=== PATIENT | female | born 1995 | race American Indian/Alaskan Native ===

== ENCOUNTER 2016-08-11 11:19 | Emergency (ER) | payer OTHER, MEDICAID ==
[2016-08-11 11:47] VITALS: BP 154/65
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
== END 2016-08-11 14:25 | disposition other institution (70) ==
LOC: ED 11:19
DX: O9A.212 Injury, poisoning and certain other consequences of external causes complicating pregnancy, second trimester (principal); J45.909 Unspecified asthma, uncomplicated; Z3A.25 25 weeks gestation of pregnancy; V89.2XXA Person injured in unspecified motor-vehicle accident, traffic, initial encounter; Y93.89 Activity, other specified; Y99.9 Unspecified external cause status; Y92.410 Unspecified street and highway as the place of occurrence of the external cause
CPT/HCPCS: 99282

== ENCOUNTER 2016-08-11 14:54 | Outpatient (CLI) | payer OTHER, MEDICAID ==
[2016-08-11 16:59] VITALS: BP 128/67
== END 2016-08-11 17:00 | disposition home or self-care (01) ==
LOC: TRG 14:54 → LD 14:56 → TRG 17:00
PROVIDERS: ATTEND Obstetrics & Gynecology
DX: O47.02 False labor before 37 completed weeks of gestation, second trimester (principal); V89.2XXA Person injured in unspecified motor-vehicle accident, traffic, initial encounter; Y93.89 Activity, other specified; Y92.89 Other specified places as the place of occurrence of the external cause; Y99.8 Other external cause status; Z3A.25 25 weeks gestation of pregnancy
CPT/HCPCS: 59025

== ENCOUNTER 2016-12-02 08:43 | Inpatient (IN) | payer MEDICAID ==
[~2016-12-02 08:43] MED LIST: NACL 0.9% IR ONE; WATER FOR IRRIG STERILE IR ONE
[2016-12-02] MEDS ORDERED: XYLOCAINE 2% INFILTRATI ONE (09:10)
--- NOTE | 2016-12-02 09:10 | History and Physical Report ---
History of Present Illness Date of examination: 12/02/16 Date of admission: 12/02/16 08:43 Chief complaint: Here for induction of labor History of present illness: 21 Y/O now 41.3 weeks here for induction of labor. Transferred in from [place] at 22.4 weeks gestation. HX of HSV2. GBS neg. Past History Past Medical History: asthma Past Surgical History: other (thumb surgery) EMD SPECIAL EDUCATION TEACHER History: herpes Family/Genetic History: diabetes, hypertension Social history: no significant social history - Obstetrical History Expected Date of Delivery: 11/22/16 Actual Gestation: 41 Week(s) 3 Day(s) : 1 Para: 0 Medications and Allergies Allergies Allergy/AdvReac Type Severity Reaction Status Date / Time pollen extracts Allergy Itching Verified 08/11/16 15:13 Home Medications Medication Instructions Recorded Confirmed Last Taken Type Albuterol Sulfate [Albuterol 0.63% 2 puff INHALATION Q4-6H PRN 08/11/16 Unknown History NEBS] Vit-Fe Fumar-FA [ 1 tab PO QDAY 08/11/16 08/11/16 08/11/16 09: 00 History Vitamin] 1 Review of Systems All systems: negative - Physical Exam Breasts: Positive: deferred Cardiovascular: Regular rate Lungs: Positive: Clear to auscultation Abdomen: Positive: soft Genitourinary (Female): Positive: normal external genitalia Vulva: both: normal Vagina: Positive: normal moisture Uterus: Positive: enlarged Anus/Rectum: Positive: normal perianal skin Extremities: Positive: normal Deep Tendon Reflex Grade: Normal +2 - Obstetrical FHR: category 1 Cervical Dilatation: 1 Cervical Effacement Percentage: 0 station: -2 Uterine Contraction Pattern: Irregular Results All other labs normal. Assessment and Plan A: IUP @ 41.2 weeks P; Induction of labor Pitocin
[2016-12-02] MEDS ORDERED: BRETHINE SUB-Q PRN (10:00)
[2016-12-02] MEDS ORDERED: PITOCin/NS 30 UNIT/500ML 30 UNITS/500 ML BAG IV SCH ×2 (10:00)
[2016-12-02] MEDS ORDERED: PITOCin/NS 20 UNIT/1000ML DRIP 20 UNITS/1,000 ML BAG IV SCH (10:00)
[2016-12-02] MEDS ORDERED: SUBLIMAZE IV PRN (10:00)
[2016-12-02] MEDS ORDERED: CERVIDIL VG ONE (10:00)
[2016-12-02] MEDS ORDERED: ePHEDrine SULFATE IV PRN (10:00)
[2016-12-02 10:22] LABS: Hematocrit 36.7 % (30.3-42.9); Hemoglobin 11.9 gm/dl (10.1-14.3); Mean Corpuscular HGB Conc 32 % (30-34); Mean Corpuscular Hemoglobin 26 pg (28-32); Mean Corpuscular Volume 82 fl (79-97); Platelet Count 241 K/mm3 (140-440); Red Blood Count 4.49 M/mm3 (3.65-5.03); Red Cell Distribution Width 17.6 % (13.2-15.2); White Blood Count 6.2 K/mm3 (4.5-11.0)
[2016-12-02] MEDS: LACTATED RINGERS 1,000 ML IV SCH ×3 (10:35→21:30)
[2016-12-02] MEDS ORDERED: BRETHINE IVP PRN (11:00)
[2016-12-02] MEDS ORDERED: STADOL IV PRN (19:54)
[2016-12-02] MEDS ORDERED: VISTARIL PO ONE (21:00)
[2016-12-02] MEDS ORDERED: MINERAL OIL PO PRN (22:00)
--- NOTE | 2016-12-02 22:05 | Event Note ---
Date: 12/02/16 Patient with decelerations on Cervidil. Have pulled Cervidil at this time with improving tracing noted. Plan is to allow fetus to recover and consider low- dose.
[2016-12-03] MEDS ORDERED: ePHEDrine SULFATE ONE (01:28)
[2016-12-03] MEDS ORDERED: NARCAN 2 MG/2 ML IV PRN (02:03)
[2016-12-03] MEDS ORDERED: ePHEDrine SULFATE IV PRN (02:03)
--- NOTE | 2016-12-03 02:03 | Anesthesia Consultation ---
Anesthesia Consult and Med Hx Date of service: 12/03/16 - Airway Anesthetic Teeth Evaluation: Good ROM Head & Neck: Adequate Mental/Hyoid Distance: Adequate Mallampati Class: Class II Intubation Access Assessment: Probably Good - Pulmonary Exam CTA: Yes - Cardiac Exam Cardiac Exam: RRR - Pre-Operative Health Status ASA Pre-Surgery Classification: ASA2 Proposed Anesthetic Plan: Epidural - Pulmonary Hx Asthma: Yes (mild) COPD: No Hx Pneumonia: No - Cardiovascular System Hx Hypertension: No - Central Nervous System Hx Seizures: No Hx Psychiatric Problems: No - Endocrine Hx Renal Disease: No Hx End Stage Renal Disease: No Hx Hypothyroidism: No Hx Hyperthyroidism: No - Hematic Hx Anemia: No Hx Sickle Cell Disease: No - Other Systems Hx Alcohol Use: No
[2016-12-03] MEDS ORDERED: REGLAN ONE ×2 (02:17→02:33)
[2016-12-03] MEDS ORDERED: PEPCID IV ONE ×3 (02:19→02:33)
[2016-12-03] MEDS ORDERED: BICITRA ONE ×2 (02:20→02:33)
[2016-12-03] MEDS ORDERED: REGLAN IV ONE (02:29)
[2016-12-03] MEDS ORDERED: BICITRA PO ONE (02:29)
[2016-12-03] MEDS ORDERED: EMLA TP PRN (02:29)
--- NOTE | 2016-12-03 02:34 | Anesthesia Day of Surgery ---
Anesthesia Day of Surgery - Day of Surgery Patient Examined: Yes Patient H&P Reviewed: Yes Patient is NPO: Yes
[2016-12-03] MEDS ORDERED: MORPHINE ONE ×2 (02:55)
[2016-12-03] MEDS ORDERED: XYLOCAINE MPF 2% ONE (02:56)
[2016-12-03] MEDS ORDERED: fentaNYL-BUPIV 2 MCG/ML-0.125% 200 MCG/100 ML BAG EPIDURAL SCH (03:00)
[2016-12-03] MEDS ORDERED: ANCEF/STERILE WATER 2 GM/20 ML 2 GM/20 ML SYRINGE IV NR (03:00)
[2016-12-03] MEDS ORDERED: NARCAN 0.4 MG/1 ML IV PRN ×2 (03:46→03:58)
--- NOTE | 2016-12-03 03:52 | Event Note ---
Date: 12/03/16 Patient with recurrent deep late decelerations, Pitocin was never started. No resolution despite position changes, fluids and oxygen. On exam, she is 8 cm. Decision made to proceed with primary LTCS
--- NOTE | 2016-12-03 03:56 | Operative Report ---
Operative Report Operative Report: DATE: 12/03/2016 PREOPERATIVE DIAGNOSIS: 21-year-old at 41+4 weeks, category 2 tracing, morbid obesity POSTOP DIAGNOSIS: As above NAME OF PROCEDURE: Primary low transverse section SURGEON: RAKESH VILA MD SUPERVISOR CUTTING DEPARTMENT: [] ANESTHESIA: Epidural EBL: 800 mL PATHOLOGY SPECIMEN: None URINE OUTPUT: 250 mL FINDINGS: Male infant in cephalic presentation, time of was 2:59 AM, weight was 6 lbs. 13 oz. or 3080 g, Apgars 8 and 9, normal uterus tubes and ovaries bilaterally DESCRIPTION OF PROCEDURE: After informed consent, patient was taken to the operating room where she was prepped and draped in a sterile fashion. Pfannestial incision was performed 2 cm above the pubic symphysis. This was then carried down to the underlying rectus fascia which was scored in the midline. The fascial incision was extended laterally with the use of Marroquin scissors, anterior leaf was then grasped with Silva's elevated dissected sharply and bluntly off the underlying rectus. In a similar fashion the inferior leaf was grasped elevated dissected sharply and bluntly off the underlying rectus. The rectus was in the midline and the peritoneal cavity was entered without difficulty. After good visualization of the bladder the peritoneal layer was extended up and down; bladder blade was placed in the patient's pelvic cavity, bladder flap was created without difficulty. A hysterotomy incision was then performed with meconium stained amniotic fluid noted. in cephalic presentation was delivered without difficulty in the usual manner; cord was clamped cut and infant was handed over to waiting NICU staff. The placenta was then delivered intact, the uterus was then exteriorized cleared of all clots and debris. Her hysterotomy incision was then closed in a running locked fashion with 0 Vicryl on a CTX; using the same suture were able to imbricate the initial layer. The uterus was then returned to the patient's pelvic cavity; the peritoneal edges were grasped with hemostats and Rima's; irrigation was used to clear the gutters of all clots and debris. Tisseel hemostatic agent was applied copiously over the hysterotomy incision. The bladder flap was then closed in a running fashion with 3-0 Vicryl. The peritoneal layer was closed in a running fashion with 3-0 Vicryl; the rectus was reapproximated with a single [id number]-llolb stitch. The fascia was then closed in a running fashion with 0 Vicryl; the subcutaneous layer was reapproximated with a single eyprjk-sc-cruaf stitch. The skin was then closed in a subcuticular manner with 4-0 Monocryl. She tolerated the procedure well lap and instrument counts were correct 2, she did receive 2 grams of Ancef prior to the procedure. She is transferred to PACU in stable condition.
[2016-12-03] MEDS ORDERED: SENOKOT PO PRN (03:58)
[2016-12-03] MEDS ORDERED: ANUCORT-HC PR PRN (03:58)
[2016-12-03] MEDS ORDERED: TYLENOL PO PRN (03:58)
[2016-12-03] MEDS ORDERED: PHENERGAN PR PRN (03:58)
[2016-12-03] MEDS ORDERED: LANSINOH TP PRN (03:58)
[2016-12-03] MEDS ORDERED: ZOFRAN IV PRN (03:58)
[2016-12-03] MEDS ORDERED: PERCOCET 5/325 PO PRN (03:58)
[2016-12-03] MEDS ORDERED: TUCKS PAD TP PRN (03:58)
[2016-12-03] MEDS ORDERED: TORADOL IV PRN (03:58)
[2016-12-03] MEDS ORDERED: MYLICON PO PRN (03:58)
[2016-12-03] MEDS ORDERED: PITOCin/NS 20 UNIT/1000ML DRIP 20 UNITS/1,000 ML BAG IV SCH (04:00)
[2016-12-03] MEDS ORDERED: SODIUM CHLORIDE FLUSH SYRINGE 10 ML IV PRN (04:00)
[2016-12-03] MEDS ORDERED: SODIUM CHLORIDE FLUSH SYRINGE 10 ML IV NR (04:00)
[2016-12-03] MEDS ORDERED: D5LR 1,000 ML IV SCH (04:00)
--- NOTE | 2016-12-03 08:03 | Ultrasound Report ---
ULTRASOUND OB LIMITED History: well being, evaluate amniotic fluid Technique: Transabdominal ultrasound with Doppler interrogation. Gestation: Single Position: Cephalic Amniotic Fluid: Normal TOMMY = 16.8 cm Heart Rate: 149 BPM
[2016-12-03] MEDS: FEOSOL PO SCH (11:29)
[2016-12-03] MEDS: PRENATAL VITAMIN PO SCH (11:29)
[2016-12-03 15:49] LABS: Hematocrit 32.8 % (30.3-42.9); Hemoglobin 11.2 gm/dl (10.1-14.3)
[2016-12-04] MEDS: MOTRIN PO PRN ×3 (02:18→17:09)
[2016-12-04] MEDS: MILK OF MAGNESIA PO PRN ×2 (02:22→09:08)
[2016-12-04] MEDS: PRENATAL VITAMIN PO SCH (09:07)
[2016-12-04] MEDS: FEOSOL PO SCH (09:07)
--- NOTE | 2016-12-04 13:02 | Progress Note ---
Assessment and Plan A: POD #1 Stable P: Follow Routine PostOp orders Encourage increased amubulation Subjective - Subjective Date of service: 12/04/16 Patient reports: appetite normal, voiding normally, pain well controlled, flatus , ambulating normally : doing well Objective - Vital Signs Latest vital signs: Vital Signs Temp Pulse Resp BP BP 12/04/16 09:09 20 12/04/16 07:55 98.8 F 70 20 106/70 12/04/16 00:00 98.6 F 61 16 134/61 12/03/16 20:00 98.6 F 72 16 131/72 12/03/16 17:32 97.4 F L 16 145/69 Intake and Output 12/03/16 12/04/16 12/04/16 22:59 06:59 14:59 Intake Total 550 400 Balance 550 400 Intake: Oral 250 400 Intake, Free Water 300 Other: Total, Intake Amount 250 400 # Voids Void 1 1 2 - Exam Breasts: Present: normal Cardiovascular: Present: Regular rate Lungs: Present: Clear to auscultation, Normal air movement Abdomen: Present: normal appearance, soft, normal bowel sounds Uterus: Present: normal, firm, fundal height below umbilicus Extremities: Present: normal Incision: Present: normal, dry, dressed
--- NOTE | 2016-12-04 13:24 | Progress Note ---
Subjective Date of service: 12/04/16 Interval history: 1st POD after Patient is in the bed, comfortable. Pain is well under control. Ambulated well. No residual neurological deficit. No anesthesia complications. Objective - Constitutional Vitals: Vital Signs - 12hr 12/04/16 12/04/16 07:55 09:09 Temperature 98.8 F Pulse Rate 70 Respiratory 20 20 Rate Blood Pressure 106/70 [Right] - Labs CBC & Chem 7: 12/03/16 15:25
[2016-12-05] MEDS: MOTRIN PO PRN ×3 (00:07→17:40)
--- NOTE | 2016-12-05 09:51 | Progress Note ---
Assessment and Plan A:POD# 2 stable P: Discharge home today Subjective - Subjective Date of service: 12/05/16 Principal diagnosis: Primary Interval history: 21 Y/O now 41.3 weeks here for induction of labor. Transferred in from [place] at 22.4 weeks gestation. HX of HSV2. GBS neg. Patient reports: appetite normal [place]: doing well Objective - Vital Signs Latest vital signs: Vital Signs Temp Pulse Resp BP 12/05/16 00:00 98.1 F 80 20 125/64 12/04/16 17:09 20 12/04/16 16:33 98.7 F 66 20 120/60 Intake and Output 12/04/16 12/05/16 12/05/16 22:59 06:59 14:59 Intake Total 240 360 Balance 240 360 Intake: Oral 240 Intake, Free Water 360 Other: Voiding Method Toilet # Voids 1 Void 1 # Bowel Movements 1 - Exam Breasts: Present: deferred Cardiovascular: Present: Regular rate Lungs: Present: Clear to auscultation Abdomen: Present: soft Vulva: both: normal Uterus: Present: fundal height below umbilicus Extremities: Present: normal Deep Tendon Reflex Grade: Normal +2
--- NOTE | 2016-12-05 09:53 | Discharge Summary ---
Providers - Providers Date of Admission: 12/02/16 08:43 Date of discharge: 12/05/16 Attending physician: FADI MARC MD Primary care physician: FADI MARC MD Hospitalization Reason for admission: induction of labor Delivery: Procedure: section Episiotomy: none Laceration: none Incision: intact Other procedures: none complications: none Discharge diagnosis: IUP at term delivered baby: male Condition at discharge: Good Disposition: DC-01 TO HOME OR SELFCARE Plan - Discharge Medications Prescriptions: Ibuprofen [Motrin 600 MG tab] 600 mg PO Q8H PRN #30 tablet PRN Reason: Pain Multivitamin with Iron [Multivitamins with Iron] 1 each PO DAILY #30 tablet oxyCODONE /ACETAMINOPHEN [Percocet 5/325] 1 tab PO Q6HR PRN #30 tablet PRN Reason: Pain - Provider Discharge Summary Activity: routine, no sex for 6 weeks, no strenuous exercise Diet: routine Instructions: routine Additional instructions: [] Smoking cessation referral if applicable(refer to patient education folder for contact #) [] Refer to [facility]'s [facility] Booklet Call your doctor immediately for: * Fever > 100.5 * Heavy vaginal bleeding ( >1 pad per hour) * Severe persistent headache * Shortness of breath * Reddened, hot, painful area to leg or breast * Drainage or odor from incision. * Keep incision clean and dry at all times and follow doctor's instructions regarding bathing/showering - Follow up plan Follow up: [facility] [Provider Group] - 14 Days
[2016-12-05] MEDS: PRENATAL VITAMIN PO SCH (17:41)
[2016-12-05] MEDS: FEOSOL PO SCH (17:41)
[2016-12-05 18:54] VITALS: BP 118/68
== END 2016-12-05 20:15 | disposition home or self-care (01) | DRG 765 ==
LOC: LD 08:43 → OB 12-03 04:56
PROVIDERS: ADMIT Obstetrics & Gynecology; ATTEND Obstetrics & Gynecology
PROC: 10D00Z1 Extraction of Products of Conception, Low, Open Approach (ICD-10-PCS; principal; 2016-12-03)
DX: O76 Abnormality in fetal heart rate and rhythm complicating labor and delivery (principal); Z68.42 Body mass index [BMI] 45.0-49.9, adult; J45.909 Unspecified asthma, uncomplicated; O99.52 Diseases of the respiratory system complicating childbirth; O99.214 Obesity complicating childbirth; E66.01 Morbid (severe) obesity due to excess calories; Z3A.41 41 weeks gestation of pregnancy; Z37.0 Single live birth; Z91.048 Other nonmedicinal substance allergy status
CPT/HCPCS: 36415; 59200; 76815; 85014; 85018; 85027; 86850; 86900; 86901; 99211; A6250; C9250; G0463; J0595; J1885; J2270; J2405; J2590; J2765; J3010; J7120

== ENCOUNTER 2018-04-29 12:54 | Inpatient (IN) | payer MEDICAID ==
[2018-04-29] MEDS ORDERED: REGLAN IV ONE (13:46)
[2018-04-29] MEDS ORDERED: PEPCID IV ONE ×2 (13:46→16:25)
[2018-04-29] MEDS ORDERED: BICITRA PO ONE (13:46)
--- NOTE | 2018-04-29 13:53 | History and Physical Report ---
History of Present Illness Date of examination: 04/29/18 Date of admission: 04/29/18 12:54 Chief complaint: SIUP at 39 weeks and 3 days gestation not in labor. Previous C/section. History of present illness: Patient is a 23 year old , LMP 07/27/17, EDC 05/03/18 at 39 weeks and 2 days gestation who was admitted for elective repeat C/section. She denies any contraction, fluid leakage or bleeding. She reports good movement. tracing is CAT1. Past History Past Medical History: other (obesity, anemia) Past Surgical History: section Social history: no significant social history - Obstetrical History Expected Date of Delivery: 05/03/18 Actual Gestation: 39 Week(s) 3 Day(s) : 2 Para: 1 Number of Living Children: 1 Medications and Allergies Allergies Allergy/AdvReac Type Severity Reaction Status Date / Time pollen extracts Allergy Itching Verified 08/11/16 15:13 Home Medications Medication Instructions Recorded Confirmed Last Taken Type Albuterol Sulfate [Albuterol 0.63% 2 puff INHALATION Q4-6H PRN 08/11/16 12/03/16 Unknown History NEBS] Vit-Fe Fumar-FA [ 1 tab PO QDAY 08/11/16 12/03/16 08/11/16 09:00 History Vitamin] 1 Ibuprofen [Motrin 600 MG tab] 600 mg PO Q8H PRN #30 tablet 12/03/16 Unknown Rx Multivitamin with Iron 1 each PO DAILY #30 tablet 12/03/16 Unknown Rx [Multivitamins with Iron] oxyCODONE /ACETAMINOPHEN [Percocet 1 tab PO Q6HR PRN #30 tablet 12/03/16 Unknown Rx 5/325] Active Meds: Active Medications Citric Acid/Sodium Citrate (Bicitra) 30 ml PO ONCE ONE Stop: 04/29/18 13:47 Famotidine (Pepcid) 20 mg IV ONCE ONE Stop: 04/29/18 13:47 Lactated Ringer's (Lactated Ringers) 1,000 mls @ 2,250 mls/hr IV PREOP JACKY Stop: 04/30/18 14:27 Oxytocin/Sodium Chloride (Pitocin/Ns 20 Unit/1000ml Drip) 20 units in 1,000 mls @ 0 mls/hr IV TITR JACKY Metoclopramide HCl (Reglan) 10 mg IV ONCE ONE Stop: 04/29/18 13:47 - Vital Signs Vital signs: Vital Signs Pulse BP 80 105/51 04/29/18 13:41 04/29/18 13:41 Temp Pulse Resp BP Pulse Ox 80 105/51 04/29/18 13:41 04/29/18 13:41 - Physical Exam Cardiovascular: Normal S1, Normal S2 Lungs: Positive: Clear to auscultation Vulva: both: normal Deep Tendon Reflex Grade: Normal +2 - Obstetrical FHR: category 1 Uterine Contraction Monitor Mode: External Cervical Dilatation: 0 Cervical Effacement Percentage: 0 station: -3 Uterine Contraction Pattern: Absent Results All other labs normal. Assessment and Plan - Patient Problems (1) 39 weeks gestation of Current Visit: No Status: Acute (2) Previous section Current Visit: No Status: Acute Plan to address problem: Plan to address problem: Admit to labor floor. monitoring. Routine admitting labs. IV hydration. keep NPO. Repeat C/section. Risks, benefits, and alternatives of the procedure were discussed in detail with the patient which included but not limited to the risk of infection, hemorrhage requiring blood transfusion, injury to the bowel or bladder and blood vessels. The patient expressed understanding, her questions were answered, and she gave informed consent. Anesthesia has been notified. (3) Patient declines vaginal after section () Current Visit: No Status: Acute
[2018-04-29] MEDS ORDERED: PITOCin/NS 20 UNIT/1000ML DRIP 20 UNITS/1,000 ML BAG IV SCH ×2 (14:00→19:00)
[2018-04-29 14:06] LABS: Hematocrit 35.3 % (30.3-42.9); Hemoglobin 11.3 gm/dl (10.1-14.3); Mean Corpuscular HGB Conc 32 % (30-34); Mean Corpuscular Volume 79 fl (79-97); Platelet Count 213 K/mm3 (140-440); Red Blood Count 4.46 M/mm3 (3.65-5.03); Red Cell Distribution Width 16.1 % (13.2-15.2)
[2018-04-29] MEDS: LACTATED RINGERS 1,000 ML IV SCH ×2 (15:00→16:26)
[2018-04-29] MEDS ORDERED: REGLAN ONE (16:24)
[2018-04-29] MEDS ORDERED: BICITRA ONE (16:24)
[2018-04-29] MEDS ORDERED: ANCEF/STERILE WATER 2 GM/20 ML 2 GM/20 ML SYRINGE IV ONE (16:25)
[2018-04-29] MEDS ORDERED: ANCEF/STERILE WATER 2 GM/20 ML IV ONE (17:15)
[2018-04-29] MEDS ORDERED: NACL 0.9% IR ONE (18:00)
[2018-04-29] MEDS ORDERED: WATER FOR IRRIG STERILE IR ONE (18:01)
--- NOTE | 2018-04-29 18:25 | Operative Report ---
Operative Report Operative Report: Date of procedure: 04/29/2018 Pre-operative diagnosis: 1. Intrauterine at 39-3/7 weeks 2. Previo us 3. Morbid obesity Post-operative diagnosis: Same Procedure name(s): Repeat low transverse Surgeon: Wilfrid Andres MD Carbider: None Anesthesia: Spinal anesthesia by Dr. Mccabe EBL: 400 mL's Findings: A 3073 g female Apgars 8 at 1 minute 8 at 5 minutes. Clear amniotic fluid. Normal uterus. Normal tubes and ovaries bilaterally. Procedure: After the patient was prepped and draped in usual sterile fashion, and after satisfactory level of epidural anesthesia was obtained, the skin knife was used to make a transverse skin incision through the previous skin scar. The incision was excised down to layer of the fascia, which was nicked in the midline and extended laterally using the Bovie cautery. The rectus muscles were dissected off the rectus fascia both superiorly and inferiorly. The rectus bellies in the midline, and the peritoneum was entered under direct visualization. The peritoneal incision was extended superiorly and inferiorly. A bladder flap was created and the bladder blade was then placed. The uterus was scored in a curvilinear linear fashion, entered in the midline revealing clear amniotic fluid. The infant's head was delivered onto the surgical field with the aid of a vacuum, nuchal cord 1 was easily reduced and the oropharynx and nasopharynx were bulb suctioned. The rest of the infant's body was delivered, cord was doubly clamped and cut and the infant was handed to the waiting respiratory team. Cord blood was then obtained. The placenta was manually removed from the uterus, and the uterus removed from its normal anatomical position. After gentle uterine lavage, the incision was inspected and found to be without extensions. It was then closed in 2 layers using 0 Vicryl suture in a running interlocking fashion, the second layer imbricating the first. After good hemostasis was achieved, copious amounts or irrigation was performed, and the gutters were suctioned free of blood and blood clots. The Tisseel sealant was sprayed across the uterine incision. The uterus was then returned to its normal anatomical position, and after excellent hemostasis assured, the peritoneum was re-approximated using 3-0 Vicryl suture in a running interlocking fashion, and then the rectus muscles were re-approximated using 3-0 Vicryl suture in a [id number] configuration. The fascia was then re-approximated using 0 Vicryl suture in running interlocking fashion. The subcutaneous layer was made hemostatic using Bovie cautery, the Tisseel sealant was sprayed across the fascial incision and the skin edges re-approximated using 4-0 Vicryl suture in a sub-cuticular fashion. Patient tolerated the procedure well was transported to recovery in stable condition.
[2018-04-29] MEDS ORDERED: LANSINOH TP PRN (18:29)
[2018-04-29] MEDS ORDERED: NORCO 5/325 PO PRN (18:29)
[2018-04-29] MEDS ORDERED: NARCAN 0.4 MG/1 ML IV PRN (18:29)
[2018-04-29] MEDS ORDERED: TORADOL IV PRN (18:29)
[2018-04-29] MEDS ORDERED: TYLENOL PO PRN (18:29)
[2018-04-29] MEDS ORDERED: MILK OF MAGNESIA PO PRN (18:29)
[2018-04-29] MEDS ORDERED: ZOFRAN IV PRN (18:29)
[2018-04-29] MEDS ORDERED: TUCKS PAD TP PRN (18:29)
[2018-04-29] MEDS ORDERED: SENOKOT PO PRN (18:29)
[2018-04-29] MEDS ORDERED: PHENERGAN PR PRN (18:29)
[2018-04-29] MEDS ORDERED: MYLICON PO PRN (18:29)
[2018-04-29] MEDS ORDERED: D5LR 1,000 ML IV SCH (19:00)
[2018-04-29] MEDS ORDERED: SODIUM CHLORIDE FLUSH SYRINGE 10 ML IV NR (19:00)
[2018-04-29 20:33] LABS: Basophils % (Auto) 0.4 % (0.0-1.8); Eosinophils # (Auto) 0.1 K/mm3 (0.0-0.4); Eosinophils % (Auto) 1.6 % (0.0-4.3); Hematocrit 33.9 % (30.3-42.9); Hemoglobin 10.9 gm/dl (10.1-14.3); Lymphocytes # (Auto) 1.8 K/mm3 (1.2-5.4); Lymphocytes % (Auto) 26.8 % (13.4-35.0); Mean Corpuscular HGB Conc 32 % (30-34); Mean Corpuscular Volume 79 fl (79-97); Monocytes # (Auto) 0.4 K/mm3 (0.0-0.8); Monocytes % (Auto) 5.4 % (0.0-7.3); Platelet Count 224 K/mm3 (140-440); Red Blood Count 4.31 M/mm3 (3.65-5.03); Red Cell Distribution Width 15.7 % (13.2-15.2)
[2018-04-30] MEDS: ANCEF/NS 1 GM/50 ML 1 GM/50 ML BAG IV SCH ×2 (01:23→09:50)
[2018-04-30] MEDS ORDERED: M-M-R II VACCINE SUB-Q ONE (06:00)
[2018-04-30] MEDS ORDERED: BOOSTRIX IM ONE (06:00)
[2018-04-30] MEDS: IBUPROFEN PO PRN ×2 (08:09→14:44)
[2018-04-30 08:15] LABS: Hematocrit 36.8 % (30.3-42.9); Hemoglobin 10.7 gm/dl (10.1-14.3)
[2018-04-30] MEDS: PRENATAL VITAMIN PO SCH (09:50)
[2018-04-30] MEDS: FEOSOL PO SCH (09:51)
--- NOTE | 2018-04-30 10:16 | Progress Note ---
Assessment and Plan A: POD#1 s/p Repeat C/S Bottle feeding Stable P: Continue routine PP/PO orders Encouraged ambulation in room Advance diet as tolerated Subjective - Subjective Date of service: 04/30/18 Principal diagnosis: POD#1 s/p Repeat c/s Interval history: See H&P and Operative note Patient reports: appetite normal, voiding normally, pain well controlled, flatus, ambulating normally, no bowel movement [place]: doing well, bottle feeding Objective - Vital Signs Latest vital signs: Vital Signs Temp Pulse Resp BP BP Pulse Ox 04/30/18 04:40 98.3 F 73 20 132/67 98 04/30/18 01:35 98.5 F 85 20 120/70 95 04/29/18 20:00 98.4 F 70 114/58 04/29/18 19:44 97.6 F 69 18 124/79 100 04/29/18 19:30 65 18 126/71 100 04/29/18 19:15 62 18 128/72 100 04/29/18 19:12 18 04/29/18 19:00 68 18 123/66 100 04/29/18 18:45 62 18 104/36 100 04/29/18 18:40 57 L 18 109/48 100 04/29/18 18:35 66 18 82/32 100 04/29/18 18:30 62 18 92/40 100 04/29/18 16:28 67 112/57 04/29/18 15:15 98.5 F 80 20 105/51 04/29/18 13:41 80 105/51 Intake and Output 04/29/18 04/30/18 04/30/18 23:59 07:59 15:59 Intake Total 1500 290 Output Total 200 600 Balance 1300 -310 Intake: IV 1500 50 ANCEF/NS 1 GM/50 ML 1 gm 50 In 50 ml @ 100 mls/hr IV Q8H [facility] Rx#:[id number] Oral 240 Output: Urine 200 600 Indwelling Catheter 100 600 Other: Total, Intake Amount 240 Total, Output Amount 100 600 Weight 125.191 kg Estimated Blood Loss 400 - Exam Breasts: Present: normal Cardiovascular: Present: Regular rate, Normal S1, Normal S2, No murmurs Lungs: Present: Clear to auscultation, Normal air movement Abdomen: Present: normal appearance, soft, tenderness (as expected Post-op), normal bowel sounds. Absent: distention Vulva: both: normal Uterus: Present: firm, fundal height at umbilicus Extremities: Present: normal Deep Tendon Reflex Grade: Normal +2 Incision: Present: normal, dry, intact, dressed (Pressure dressing CDI) - Labs Labs: Abnormal lab results 04/29/18 04/29/18 Range/Units 13:40 20:17 MCH 25 L 25 L (28-32) pg RDW 16.1 H 15.7 H (13.2-15.2) %
[2018-04-30] MEDS: PERCOCET 5/325 PO PRN (23:05)
[2018-05-01] MEDS: PERCOCET 5/325 PO PRN (05:51)
[2018-05-01] MEDS ORDERED: BOOSTRIX IM ONE (06:00)
[2018-05-01] MEDS: FEOSOL PO SCH (10:35)
[2018-05-01] MEDS: PRENATAL VITAMIN PO SCH (10:35)
[2018-05-01] MEDS: IBUPROFEN PO PRN ×2 (12:25→18:26)
--- NOTE | 2018-05-01 23:13 | Progress Note ---
Assessment and Plan A: /postop day 2 S/P repeat low transverse section. Anemia. P: Supplement with iron. Encouraged ambulation. Subjective - Subjective Date of service: 05/01/18 Principal diagnosis: POD#2 s/p Repeat c/s Patient reports: appetite normal, voiding normally, pain well controlled, flatus, ambulating normally, no dizzy ambulation, no nauseated : doing well Objective - Vital Signs Latest vital signs: Vital Signs Temp Pulse Resp BP BP Pulse Ox 05/01/18 16:37 98.3 F 88 20 112/62 99 05/01/18 07:09 97.5 F L 72 18 115/46 05/01/18 05:51 18 04/30/18 23:30 98.7 F 77 18 107/69 Intake and Output 05/01/18 05/01/18 05/01/18 07:59 15:59 23:59 Intake Total 780 240 Balance 780 240 Intake: Oral 480 240 Intake, Free Water 300 Other: Total, Intake Amount 480 240 # Voids Void 1 - Exam Cardiovascular: Present: Regular rate, Normal S1, Normal S2 Lungs: Present: Clear to auscultation Abdomen: Present: normal appearance, soft, normal bowel sounds. Absent: distention, tenderness, guarding, rigidity Uterus: Present: normal, firm, fundal height below umbilicus. Absent: bogginess, tenderness Extremities: Present: normal. Absent: tenderness, edema Incision: Present: normal, intact, dressed
[2018-05-02] MEDS: PERCOCET 5/325 PO PRN (05:42)
[2018-05-02] MEDS: PRENATAL VITAMIN PO SCH (10:21)
[2018-05-02] MEDS: FEOSOL PO SCH (10:21)
[2018-05-02] MEDS: IBUPROFEN PO PRN (17:55)
[2018-05-02 19:19] VITALS: BP 113/54
--- NOTE | 2018-05-02 19:30 | Progress Note ---
Assessment and Plan A: /postop day 3 S/P repeat LTCS. P: Discharge patient home today. /postop discharge instructions and warning signs discussed with patient in detail. Care of incision and activity restrictions discussed with patient. Advised patient to avoid intercourse, lifting and heavy housework, and driving. Advised patient to follow up in office in 1 week for incision check. Patient voiced understanding of all instructions. MD has left Rx for patient on chart; advised patient to get these at discharge and get them filled. Subjective - Subjective Date of service: 05/02/18 Principal diagnosis: POD#3 s/p Repeat c/s Interval history: /postop day 3 S/P repeat LTCS. Doing well. Patient desires discharge today. Patient is voiding without difficulty. Ambulating well. Tolerating a regular diet without nausea or vomiting. Passing gas. Patient denies headache, chest pain, cough, shortness of breath, leg pain, abdominal pain, heavy bleeding or any other problems. Patient reports: appetite normal, voiding normally, pain well controlled, flatus, ambulating normally, no dizzy ambulation, no nauseated [place]: doing well Objective - Vital Signs Latest vital signs: Vital Signs Temp Pulse Resp BP BP Pulse Ox 05/02/18 15:38 98.3 F 84 20 113/54 100 05/02/18 08:39 98.1 F 79 20 113/71 98 05/02/18 05:42 20 05/02/18 00:00 98.7 F 74 18 117/72 Intake and Output 05/02/18 05/02/18 05/02/18 07:59 15:59 23:59 Intake Total 360 Balance 360 Intake: Oral 360 Other: Total, Intake Amount 120 # Voids Void 1 - Exam Cardiovascular: Present: Regular rate, Normal S1, Normal S2, No murmurs Lungs: Present: Clear to auscultation Abdomen: Present: normal appearance, soft, normal bowel sounds. Absent: distention, tenderness, guarding, rigidity Uterus: Present: normal, firm, fundal height below umbilicus. Absent: bogginess, tenderness Extremities: Present: normal. Absent: tenderness, edema Incision: Present: normal, dry, intact
--- NOTE | 2018-05-02 19:30 | Discharge Summary ---
Providers - Providers Date of Admission: 04/29/18 12:54 Date of discharge: 05/02/18 Attending physician: JUNG VALDEZ MD None Primary care physician: JUNG VALDEZ MD Hospitalization Reason for admission: section Delivery: Procedure: section Incision: normal, dry, intact Other procedures: none complications: none Discharge diagnosis: IUP at term delivered [place] baby: female Pertinent studies: Labs Hospital course: Normal hospital course Condition at discharge: Good Disposition: DC-01 TO HOME OR SELFCARE Plan - Discharge Medications Prescriptions: Ferrous Sulfate [Feosol 325 MG tab] 325 mg PO BID #60 tablet HYDROcodone/APAP 5-325 [[employer] [place] [employer] 5/325] 1 each PO Q6HR PRN #30 tablet PRN Reason: Pain Ibuprofen [Motrin] 800 mg PO Q8HR PRN #30 tablet PRN Reason: Moder Pain Unrelieved By [employer] [place] [employer] Pnv No.95/Ferrous Fum/Folic AC [ Vitamin Tablet] 1 each PO DAILY #30 tablet - Provider Discharge Summary Activity: routine, no sex for 6 weeks, no heavy lifting 4 weeks, no strenuous exercise Diet: routine Instructions: routine Additional instructions: Call your doctor immediately for: * Fever > 100.5 * Heavy vaginal bleeding ( >1 pad per hour) * Severe persistent headache * Shortness of breath * Reddened, hot, painful area to leg or breast - Follow up plan Follow up: JUNG VALDEZ MD [Primary Care Provider] - 7 Days Forms: [facility] Discharge Summary
== END 2018-05-02 20:27 | disposition home or self-care (01) | DRG 766 ==
LOC: APU 12:54 → OB 20:33
PROVIDERS: ADMIT Obstetrics & Gynecology; ATTEND Obstetrics & Gynecology
PROC: 10D00Z1 Extraction of Products of Conception, Low, Open Approach (ICD-10-PCS; principal; 2018-04-29)
PROC: 3E0234Z Introduction of Serum, Toxoid and Vaccine into Muscle, Percutaneous Approach (ICD-10-PCS; 2018-04-30)
DX: O34.211 Maternal care for low transverse scar from previous cesarean delivery (principal); O99.214 Obesity complicating childbirth; O90.81 Anemia of the puerperium; D64.9 Anemia, unspecified; O69.81X0 Labor and delivery complicated by cord around neck, without compression, not applicable or unspecified; E66.01 Morbid (severe) obesity due to excess calories; Z88.8 Allergy status to other drugs, medicaments and biological substances; Z79.51 Long term (current) use of inhaled steroids; Z23 Encounter for immunization; Z3A.39 39 weeks gestation of pregnancy; Z37.0 Single live birth
CPT/HCPCS: 36415; 59025; 85014; 85018; 85025; 85027; 86592; 86850; 86900; 86901; 90471; 90715; 96360; 96361; 96374; 96375; G0378; C9250; J0690; J1885; J2590; J2765; J7120; J7121